=== PATIENT | female | born 1960 | race Two or more races ===

== ENCOUNTER → 2020-10-20 | Outpatient (CLI) | payer BC ==
[2020-10-20 15:35] VITALS: BP 140/88; PULSE 88; RESP 18; TEMP 97.6
--- NOTE | 2020-10-20 15:56 | P.GSHP ---
History of Present Illness H&P Date: 10/20/20 Chief Complaint: abnromal mammogram Abbey is a 59 year old white female seen in consultation for a bilateral mammgram on 08-10-20. This revealed a new elliptical shaped mass in the subcu. The lateral aspect of the right breast at the 11 o'clock position. This measure d [address] place 0.6 x 0.8 cm. This was new and not present on prior mammograms. The patient was recommended to undergo spot compression cone-down views and ultrasound. An ultrasound of the right breast was performed and 120 821. This revealed at the 11 o'clock position is 0.7 x 1 cm thick walled cyst. Ultrasound core biopsy was recommended. The patient at that procedure which was performed on was noted to have a 2.3 x 2 cm prominent was a circumscribed lesion felt to reflect a prominent but benign lymph node. The patient additionally was noted to have on ultrasound a 10 x 5 mm lesion for which biopsy was performed. This biopsy revealed her last mammogram prior to this was an proximally 1-2 years ago. She did not feel any new lumps masses or nodules of concern. However, she had a breast reduction in January of 2018. She reduced down to a 40D. Her breast feel different to her since that time. No nipple discharge of skin changes. She had a bilateral mammogram performed on 1220 320. This revealed a 1.6 x 0.8 cm elliptical shaped mass which was felt to be new in the right breast and the superior-lateral aspect. An ultrasound was performed of this area. The ul trasound was performed on 120 821. Ultrasound revealed a 4.7 x 1 cm thick walled cystic lesion. Ultrasound-guided core biopsy was performed of the cystic lesion and scanning of the mass revealed the mass to be at 2.3 x 2 cm prominent as a circumscribed lesion felt to reflect a prominent be benign lymph node as it was a fatty hilum identified. from the core biopsy was benign. The impression was successful uncomplicated ultrasound-guided core biopsy which was felt to be benign low index of suspicion in the right breast mammogram and ultrasound in 6 months time recommended. No lesions of concern identified in the left breast. Caffeine: 23 cups of coffee per day Nicotine: Negative lion-bromine: frequent Family History: none Hormonal History: menarche: 11 , breast fed: yes, age at first : 21 menopause: 48 BCP: 20 years hormones: none Surgical history: 2 bladder slings Bilateral carpal tunnel Bilateral breast reduction mammoplasties left iguinal hernia repair Medical History: none Social History: smoke: none alcohol: none drugs: none - Constitutional Constitutional: Denies chills, Denies fever - EENT Eyes: denies blurred vision, denies pain Ears: bilateral: tinnitus, deny: decreased hearing Ears, nose, mouth and throat: Denies headache, Denies sore throat - Breasts Breasts: bilateral: as per HPI - Cardiovascular Cardiovascular: Denies chest pain, Denies shortness of breath - Respiratory Respiratory: Denies cough, Denies 7 - Gastrointestinal Gastrointestinal: Denies abdominal pain, Denies diarrhea, Denies nausea, Denies vomiting - Genitourinary (Female) Genitourinary: Denies dysuria, Denies hematuria - Menstruation Menstruation: Reports postmenopausal - Musculoskeletal Musculoskeletal: Denies myalgias - Integumentary Integumentary: Denies pruritus, Denies rash - Neurological Neurological: Denies numbness, Denies weakness - Psychiatric Psychiatric: Reports depression, Denies anxiety - Endocrine Endocrine: Denies fatigue, Denies weight change - Hematologic/Lymphatic Comment: none - Allergic/Immunologic Allergic/Immunologic: Reports as per HPI Medications and Allergies Home Medications Medication Instructions Recorded Confirmed Type buPROPion [Wellbutrin] 100 mg PO TID 10/20/20 10/20/20 History methylPREDNISolone Dose Pack 4 mg PO DIRECTED 10/20/20 10/20/20 History [Medrol Dose Pack] Allergies Allergy/AdvReac Type Severity Reaction Status Date / Time No Known Allergies Allergy Unverified 10/20/20 15:23 Surgical - Exam BMI 31.9 - General well developed, well nourished, no distress - Eyes normal ocular movement - ENT normal pinna, normal nares - Neck no masses, trachea midline - Respiratory normal respiratory effort, clear to auscultation - Cardiovascular Rhythm: regular Heart Sounds: normal: S1, S2 - Abdomen Abdomen: soft - Integumentary normal turgor - Neurologic no disoriented, no combative - Musculoskeletal normal gait - Psychiatric oriented to time, oriented to person, oriented to place, speech is normal, memory intact Breast exam: BRA: 40D inspection: grade 1 ptosis bilateral, well-healed scars from prior surgery Palpation: Right breast: Multiple positional exam fibrocystic changes, no dominant masses or nodules of concern Right axilla: No adenopathy of concern Left breast: Multiple positional exam fibrocystic changes no dominant masses or nodules of concern Left axilla: No adenopathy of concern Results Mammogram and ultrasound results reviewed as well as radiographs reviewed in person with Dr. Ibrahim Assessment and Plan Assessment: Impression: 1. Abnormal right breast mammogram July 2020 and ultrasound from August 2020; no abnormalities noted in the left breast 2. Status post bilateral reduction mammoplasty 3. Status post post-core biopsy lesion in the right breast/benign, question if this was the area seen on mammogram repeat ultrasound of this area reveals to be consistent with benign lymph node 4. Fibrocystic breast changes 5. 2 cups of coffee per day Plan: 1. Repeat right breast mammogram and ultrasound in 6 months with physician exam at that time 2. Patient encouraged to decrease caffeine intake 3. At this time there is nothing further which would warrant interventional biopsy nor additional radiographic evaluation 4. Fibrocystic breast changes CC: DR. Haywood We discussed that decreasing caffeinated beverages and chocolate may decrease fibrocystic breast changes. These changes may benefit fibrocystic breast changes. She will consider this. Encounter 35 minutes, time spent in physical examination, reviewing reports, and counselling.
== END | disposition home or self-care (01) ==
LOC: WWCWWP 14:49
PROVIDERS: ATTEND Surgery
DX: N60.11 Diffuse cystic mastopathy of right breast (principal); N60.12 Diffuse cystic mastopathy of left breast; Z98.890 Other specified postprocedural states

== ENCOUNTER → 2021-03-30 | Outpatient (CLI) | payer BC ==
--- NOTE | 2021-03-30 12:05 | MM ---
Reason for exam: follow-up at short interval from prior study. Last mammogram was performed 8 months ago. History: Patient is postmenopausal. Benign ultrasound-guided core biopsy of the right breast, September 2020. Reductions of both breasts, 2016. Physical Findings: Nurse did not find any significant physical abnormalities on exam. MG 3D Diag Mammo W/Cad RT CC, MLO, and XCCL view(s) were taken of the right breast. Prior study comparison: August 10, 2020, mammogram. September 30, 2017, mammogram. There are scattered fibroglandular densities. There is chronic nodularity in the right breast. Fat necrosis calcifications upper outer quadrant. Additional short interval follow up recommended. These results were verbally communicated with the patient and result sheet given to the patient on 03/30/21. ASSESSMENT: Probably benign, BI-RAD 3 RECOMMENDATION: Follow-up diagnostic mammogram of both breasts in 6 months.
== END | disposition home or self-care (01) ==
LOC: RADMAMWWP 10:44
PROVIDERS: ATTEND Surgery
DX: R92.1 Mammographic calcification found on diagnostic imaging of breast (principal); N64.1 Fat necrosis of breast
CPT/HCPCS: 77061; 77065

== ENCOUNTER → 2021-05-04 | Outpatient (CLI) | payer BC ==
[2021-05-04 16:19] VITALS: BP 119/80; PULSE 79; RESP 12; TEMP 98.2
--- NOTE | 2021-05-04 16:49 | P.PN ---
Subjective Progress Note Date: 05/04/21 Principal diagnosis: BMI 30.4 She had a bilateral mammogram performed on 561134. This revealed a 1.6 x 0.8 cm elliptical shaped mass which was felt to be new in the right breast in the superior-lateral aspect. An ultrasound was performed of [place] [address]. Ultrasound revealed a 4.7 x 1 cm thick walled cystic lesion. Ultrasound-guided core biopsy was performed of the cystic lesion and scanning of the mass revealed the mass to be at 2.3 x 2 cm prominent as a circumscribed lesion felt to reflect a prominent be benign lymph node as it was a fatty hilum identified. from the core biopsy was benign. The impression was successful uncomplicated ultrasound-guided core biopsy which was felt to be benign low index of suspicion in the right breast mammogram and ultrasound in 6 months time recommended. No lesions of concern identified in the left breast. Patient does not feel any lumps masses or nodules of concern in either breast. [place] [address] which was felt to be benign BIRADS 3. Follow-up diagnostic mammogram of both breasts is recommended in 6 months to be back on schedule. Patient has not had COVID, she did get the vaccine. Caffeine: 23 cups of coffee per day Nicotine: Negative lion-bromine: frequent Family History: none Hormonal History: menarche: 11 , breast fed: yes, age at first : 21 menopause: 48 BCP: 20 years hormones: none Surgical history: 2 bladder slings Bilateral carpal tunnel Bilateral breast reduction mammoplasties left iguinal hernia repair Medical History: none Social History: smoke: none alcohol: none drugs: none - Constitutional Constitutional: Denies chills, Denies fever - EENT Eyes: denies blurred vision, denies pain Ears: bilateral: tinnitus, deny: decreased hearing Ears, nose, mouth and throat: Denies headache, Denies sore throat - Breasts Breasts: bilateral: as per HPI - Cardiovascular Cardiovascular: Denies chest pain, Denies shortness of breath - Respiratory Respiratory: Denies cough - Gastrointestinal Gastrointestinal: Denies abdominal pain, Denies diarrhea, Denies nausea, Denies vomiting - Genitourinary (Female) Genitourinary: Denies dysuria, Denies hematuria - Menstruation Menstruation: Reports postmenopausal - Musculoskeletal Musculoskeletal: Denies myalgias - Integumentary Integumentary: Denies pruritus, Denies rash - Neurological Neurological: Denies numbness, Denies weakness - Psychiatric Psychiatric: Reports depression, Denies anxiety - Endocrine Endocrine: Denies fatigue, Denies weight change - Hematologic/Lymphatic Comment: none - Allergic/Immunologic Allergic/Immunologic: Reports as per HPI Objective - Vital Signs Vital signs: Vital Signs Temp 98.2 F 05/04/21 16:13 Pulse 79 05/04/21 16:13 Resp 12 05/04/21 16:13 BP 119/80 05/04/21 16:13 Pulse Ox 96 05/04/21 16:13 Intake & Output 05/03/21 05/04/21 05/04/21 18:59 06:59 18:59 Weight 90.718 kg - Exam BMI 30.4 - Constitutional General appearance: Present: cooperative - EENT Eyes: Present: EOMI ENT: Present: hearing grossly normal - Neck Neck: Present: normal ROM - Respiratory Respiratory: bilateral: CTA - Cardiovascular Rhythm: regular Heart sounds: normal: S1, S2 - Gastrointestinal General gastrointestinal: Present: soft - Integumentary Integumentary: Present: normal turgor - Musculoskeletal Musculoskeletal: Present: gait normal - Psychiatric Psychiatric: Present: A&O x's 3, appropriate affect, intact judgment & insight - Additional findings Additional findings: Breast Exam: BRA: 38DD inspection: Well-healed scars bilateral from prior reduction mammoplasty Palpation: Right breast: Multi-positional exam fibrocystic changes no dominant masses or nodules of concern Right axilla: No adenopathy of concern Left breast: Multiple positional exam fibrocystic changes no dominant masses or nodules of concern Left axilla: No adenopathy of concern Assessment and Plan Assessment: Depression: 1. Bilateral fibrocystic breast changes 2. Scars related to reduction mammoplasty bilateral Plan: 1. Repeat bilateral mammogram in 6 months with a right breast ultrasound 2. Follow up sooner if any questions or concerns CC: Dr. Soumya Haywood
== END ==
LOC: WWCWWP 15:55
PROVIDERS: ATTEND Surgery
DX: N60.11 Diffuse cystic mastopathy of right breast (principal); N60.12 Diffuse cystic mastopathy of left breast; F32.9 Major depressive disorder, single episode, unspecified; Z98.82 Breast implant status

== ENCOUNTER → 2021-10-20 | Outpatient (CLI) | payer BC ==
--- NOTE | 2021-10-20 15:18 | MM ---
Reason for exam: additional evaluation requested from prior study. Last mammogram was performed 7 months ago. History: Patient is postmenopausal. Benign ultrasound-guided core biopsy of the right breast, September 2020. Reductions of both breasts, 2016. Physical Findings: A clinical breast exam by your physician is recommended on an annual basis and results should be correlated with mammographic findings. MG 3D Diag Mammo W/Cad ABBIE Bilateral CC and MLO view(s) were taken. Prior study comparison: March 30, 2021, right breast MG 3d diag mammo w/cad RT. August 10, 2020, mammogram. The breast tissue is heterogeneously dense. This may lower the sensitivity of mammography. Stable benign calcifications. There is chronic nodularity bilaterally. No significant new findings when compared with previous films. These results were verbally communicated with the patient and result sheet given to the patient on 10/20/21. ASSESSMENT: Incomplete: need additional imaging evaluation, BI-RAD 0 RECOMMENDATION: Ultrasound of the right breast.
--- NOTE | 2021-10-20 15:19 | USB ---
Reason for exam: additional evaluation requested from abnormal screening. History: Patient is postmenopausal. Benign ultrasound-guided core biopsy of the right breast, September 2020. Reductions of both breasts, 2016. US Breast RT Right complete breast ultrasound includes all four quadrants, the retroareolar region and axilla. Finding demonstrates a 0.8 x 0.6 x 0.8cm lesion at 11 o'clock, a 1.3 x 0.7 x 1.2cm lesion at 11 o'clock and a 0.7 x 0.7 x 0.7cm lesion at 11 o'clock. These results were verbally communicated with the patient and result sheet given to the patient on 10/20/21. ASSESSMENT: Probably benign, BI-RAD 3 RECOMMENDATION: Ultrasound of the right breast in 6 months.
== END | disposition home or self-care (01) ==
LOC: RADMAMWWP 12:45
PROVIDERS: ATTEND Surgery
DX: R92.8 Other abnormal and inconclusive findings on diagnostic imaging of breast (principal); Z78.0 Asymptomatic menopausal state
CPT/HCPCS: 77062; 77066

== ENCOUNTER → 2022-06-05 | Outpatient (CLI) | payer BC ==
--- NOTE | 2022-06-05 10:52 | USB ---
Reason for Exam: Follow-up at short interval from prior study. Patient History: Menarche at age 10. First Full-Term at age 21. Postmenopausal. 2016, Bilateral Reduction. 09/2020, Benign Ultrasound-Guided Core Biopsy on the right side. Risk Values: Caprice 5 year model risk: 1.7%. NCI Lifetime model risk: 7.1%. Technique: Method: Whole Breast Handheld. Prior Study Comparison: 08/10/2020 Screening Mammogram, Unknown. 03/30/2021 Right Diagnostic Mammogram, [facility]. 10/20/2021 Bilateral Diagnostic Mammogram, [facility]. Findings: The whole breast of the right breast, the axilla of the right breast and the retroareolar of the right breast were scanned. A complete US of all four quadrants of the breast, axilla, and retro-areolar region were reviewed. At the 11:00 position, 5 cm from the nipple, there are 2 adjacent oval benign cysts measuring 1.4 and 1.1 cm. Dense shadowing calcification adjacent measuring 7 mm corresponds well to an oil cyst calcification on mammogram. A 5 x 5 x 5 mm mixed area with adjacent microclip. This seems to correspond to the site of previous biopsy. No other solid or cystic lesion. Overall Assessment: Probably benign, BI-RAD 3 Management: Diagnostic Mammogram of both breasts in 6 months. Diagnostic Breast Ultrasound of the right breast. Mammogram follow-up in 6 months in time for the patient's annual exam. Targeted ultrasound follow-up upper-outer quadrant right breast. Patient should continue monthly self breast exams. Results were given to the patient verbally at the time of exam. Electronically signed and approved by: Kaleigh Milligan M.D. Radiologist
== END | disposition home or self-care (01) ==
LOC: RADUSWWP 10:12
PROVIDERS: ATTEND Surgery
DX: R92.8 Other abnormal and inconclusive findings on diagnostic imaging of breast (principal); Z78.0 Asymptomatic menopausal state

== ENCOUNTER → 2022-06-29 | Outpatient (CLI) | payer BC ==
[2022-06-29 13:24] VITALS: BP 129/53; PULSE 101; RESP 17; TEMP 98.5
--- NOTE | 2022-06-29 13:46 | P.PN ---
Subjective Progress Note Date: 06/29/22 Principal diagnosis: fibrocystic breast disease Abbey is a 61 year old white female seen for breast evaluation. She had a bilateral mammogram performed on 3421. Secondary to the findings and ultrasound of the right breast was recommended. This was performed on the same date. Ultrasound revealed several cystic lesions and a repeat ultrasound in 6 months was recommended. The repeat ultrasound was performed in 633931. Repeat ultrasound revealed 2 adjacent oval benign cyst measuring 1.4-1.1 cm at the 11 o'clock position. Additionally there is believed to be an oral cyst was identified. A 5 x 5 mm mixed area with an adjacent microclip was seen and was felt to correspond to an area which had previously been biopsied and was benign. The patient does not feel any new lumps masses or nodules of concern in either breast. The patient did have a biopsy of her right breast on which revealed fibrosis and dystrophic calcifications with histiocytic infiltration no mammary ducts or malignancy was identified. Caffeine: 2 to 3 cups of coffee per day Nicotine: Negative lion-bromine: frequent Family History: none Hormonal History: menarche: 11 , breast fed: yes, age at first : 21 menopause: 48 BCP: 20 years hormones: none Surgical history: 2 bladder slings Bilateral carpal tunnel Bilateral breast reduction mammoplasties left iguinal hernia repair left thumb surgery Medical History: none Social History: smoke: none alcohol: none drugs: none - Constitutional Constitutional: Denies chills, Denies fever - EENT Eyes: denies blurred vision, denies pain Ears: bilateral: tinnitus, deny: decreased hearing Ears, nose, mouth and throat: Denies headache, Denies sore throat - Breasts Breasts: bilateral: as per HPI - Cardiovascular Cardiovascular: Denies chest pain, Denies shortness of breath - Respiratory Respiratory: Denies cough - Gastrointestinal Gastrointestinal: Denies abdominal pain, Denies diarrhea, Denies nausea, Denies vomiting - Genitourinary (Female) Genitourinary: Denies dysuria, Denies hematuria - Menstruation Menstruation: Reports postmenopausal - Musculoskeletal Musculoskeletal: Denies myalgias - Integumentary Integumentary: Denies pruritus, Denies rash - Neurological Neurological: Denies numbness, Denies weakness - Psychiatric Psychiatric: Reports depression, Denies anxiety - Endocrine Endocrine: Denies fatigue, Denies weight change - Hematologic/Lymphatic Comment: none - Allergic/Immunologic Allergic/Immunologic: Reports as per HPI Objective - Vital Signs Vital signs: Vital Signs Temp 98.5 F 06/29/22 13:19 Pulse 101 H 06/29/22 13:19 Resp 17 06/29/22 13:19 BP 129/53 06/29/22 13:19 Pulse Ox 98 06/29/22 13:19 FiO2 Intake & Output 06/28/22 06/29/22 06/29/22 18:59 06:59 18:59 Weight 97.522 kg - Constitutional General appearance: Present: cooperative - EENT Eyes: Present: edentulous ENT: Present: hearing grossly normal - Neck Neck: Present: normal ROM - Respiratory Respiratory: bilateral: CTA - Cardiovascular Rhythm: regular Heart sounds: normal: S1, S2 - Gastrointestinal General gastrointestinal: Present: soft - Integumentary Integumentary: Present: normal turgor - Musculoskeletal Musculoskeletal: Present: gait normal - Psychiatric Psychiatric: Present: A&O x's 3, appropriate affect, intact judgment & insight - Additional findings Additional findings: Breast Exam: BRA: 40DD Inspection: Well-healed scars bilateral from bilateral reduction mammoplasty Palpation: Right breast: Multiple positional exam fibrocystic changes, no dominant masses or nodules of concern Right axilla: No adenopathy of concern Left breast: Both positional exam fibrocystic changes no dominant masses or nodules of concern Left axilla: No adenopathy of concern Assessment and Plan Assessment: Impression: Bilateral fibrocystic breast changes Plan: Bilateral mammogram and right breast ultrasound in 6 months with physician exam at that time There is concern that the area which is 5 x 5 cm in a mixed area with a microclip is not the area which was originally meant to be biopsied. I will review this with the radiologist and we're concerned we will call the patient sooner. Cc: Dr. Haywood
== END | disposition home or self-care (01) ==
LOC: WWCWWP 13:09
PROVIDERS: ATTEND Surgery
DX: Z53.9 Procedure and treatment not carried out, unspecified reason (principal)

== ENCOUNTER → 2023-11-12 | Outpatient (CLI) | payer BC ==
--- NOTE | 2023-11-12 19:50 | BD ---
EXAMINATION TYPE: Axial Bone Density DATE OF EXAM: 11/12/2023 CLINICAL HISTORY: 62 years old Female. ICD-10 CODE: M85.88 OTH DISRD OF BONE DENSITY AND STRUCTURE, OT Height: 65.5 in Weight: 228 lbs EXAM MEASUREMENTS: Bone mineral densitometry was performed using the [employer] System. Bone mineral density as measured about the Lumbar spine is: ----- L1-L4(G/cm2): 1.338 T Score Values are as follows: ----- L1: 0.1 ----- L2: 2.2 ----- L3: 1.9 ----- L4: 1.0 ----- L1-L4: 1.3 Z Score Values are as follows: ----- L1: 0.6 ----- L2: 2.6 ----- L3: 2.3 ----- L4: 1.4 ----- L1-L4: 1.7 Bone mineral density baseline Bone mineral density about the R hip (g/cm2): 0.948 Bone mineral density about the L hip (g/cm2): 0.999 T Score values are as follows: -----R Neck: -1.0 -----L Neck: -1.1 -----R Total: -0.5 -----L Total: -0.1 Z Score values are as follows: -----R Neck: -0.3 -----L Neck: -0.4 -----R Total: -0.1 -----L Total: 0.3 Bone mineral density baseline FRAX%s: The graph provided illustrates a 7.3% chance for a major osteoporotic fx and a 0.5% chance fo r the hips probability for fx in 10 years time. IMPRESSION: Normal (Values between +1 and -1 indicate normal bone mass). Consider repeating this study in 5 year s or sooner if there is some new clinical indication. NOTE: T-SCORE=SD OF THE YOUNG ADULT MEAN.
== END | disposition home or self-care (01) ==
LOC: RADBDWWP 08:44
PROVIDERS: ATTEND Internal Medicine
DX: M85.852 Other specified disorders of bone density and structure, left thigh (principal)
CPT/HCPCS: 77080

== ENCOUNTER → 2023-12-20 | Outpatient (CLI) | payer MEDICARE ==
--- NOTE | 2023-12-20 08:26 | CT ---
EXAMINATION TYPE: CT heart w calcium score DATE OF EXAM: 12/20/2023 COMPARISON: HISTORY: Screening for cardiovascular disorder. 213.9 CT DLP: 130.10 mGycm Automated exposure control for dose reduction was used. CT CALCIUM SCORING Coronary calcium is a marker for plaque (fatty deposits) in a blood vessel or atherosclerosis (harden ing of the arteries). The presence and amount of calcium detected in a coronary artery by the CT sca n, indicates the presence and amount of atherosclerotic plaque. These calcium deposits appear years before the development of heart disease symptoms such as chest pain and shortness of breath. A calcium score is computed for each of the coronary arteries based upon the volume and density of th e calcium deposits. This can be referred to as your calcified plaque burden. It does not correspond directly to the percentage of narrowing in the artery but does correlate with the severity of the un derlying coronary atherosclerosis. PROCEDURE TECHNIQUE - Prospective Gating was used. Slice thickness: 3mm. Density threshold (HU): 130, Pixel threshold: 3, Algorithm: discrete. RESULTS Region: LM Calcium Score ([place]): 0 Volume (mm3): 0 Mass (g): 0 Region: RCA Calcium Score ([place]): 0 Volume (mm3): 0 Mass (g): 0 Region: LAD Calcium Score ([place]): 0 Volume (mm3): 0 Mass (g): 0 Region: CX Calcium Score ([place]): 0 Volume (mm3): 0 Mass (g): 0 Region: PDA Calcium Score ([place]): 0 Volume (mm3): 0 Mass (g): 0 Total: Calcium Score ([place]): 0 Volume (mm3): 0 Mass (g): 0 TOTAL CALCIUM SCORE: 0 Miscellaneous: Small hiatal hernia. Heart size is normal. Borderline aortic aneurysm measuring 4 cm. IMPRESSION: Calcium Score: 0 Implication: No identifiable plaque. Risk of Coronary Artery Disease: Very low risk of coronary artery disease, generally estimated at les s than 5%. Borderline thoracic ascending aortic aneurysm measuring 4 cm. CALCIUM SCORE IMPLICATION RISK OF C ORONARY ARTERY DISEASE 0 No identifiable plaque Very low, generally less than 5% 1-10 Minimal identifiable plaque Very unlikely, less than 10% 11-100 Definite, at least mild atherosclerotic plaque Mild or m inimal coronary narrowings likely 101-400 Definite, at least moderate atherosclerotic plaque Mild coronary ar enrique disease highly likely, significant narrowing possible 401 or Higher Extensive atherosclerotic plaque High lik elihood of at least one significant coronary narrowing
== END | disposition home or self-care (01) ==
LOC: RADCTMAIN 06:10
PROVIDERS: ATTEND Internal Medicine
DX: Z13.6 Encounter for screening for cardiovascular disorders (principal); E78.2 Mixed hyperlipidemia; I71.21 Aneurysm of the ascending aorta, without rupture
CPT/HCPCS: 75571

== ENCOUNTER → 2023-12-23 | Outpatient (CLI) | payer BC, MEDICARE ==
--- NOTE | 2023-12-24 18:51 | MM ---
Reason for Exam: Screening (asymptomatic). Last screening mammogram was performed 12 month(s) ago. Patient History: Menarche at age 10. First Full-Term at age 21. Postmenopausal. Patient has history of breast feeding. 2016, Bilateral Reduction. 09/2020, Benign Ultrasound-Guided Core Biopsy on the right side. Risk Values: Caprice 5 year model risk: 1.8%. NCI Lifetime model risk: 6.6%. Prior Study Comparison: 03/30/2021 Right Diagnostic Mammogram, [facility]. 10/20/2021 Bilateral Diagnostic Mammogram, [facility]. 12/21/2022 Bilateral MG 3D diag mammo w/cad [facility], [facility]. Tissue Density: There are scattered areas of fibroglandular density. Findings: Analyzed By CAD. Chronic nodularity in both breasts. Unchanged areas of bilateral asymmetric densities. There is no suspicious group of microcalcifications or new suspicious mass in either breast. Overall Assessment: Benign, BI-RAD 2 Management: Screening Mammogram of both breasts in 1 year. . Patient should continue monthly self-breast exams. A clinical breast exam by your physician is recommended on an annual basis. This exam should not preclude additional follow-up of suspicious palpable abnormalities. Note on Caprice scores and lifetime risk: 1. A Caprice score greater than 3% is considered moderate risk. If this is the case, consider specialist referral to assess eligibility for a risk reducing agent. 2. If overall lifetime risk for the development of breast cancer is 20% or higher, the patient may qualify for future screening with alternating mammogram and breast MRI. Electronically signed and approved by: Kaleigh Milligan M.D. Radiologist
== END | disposition home or self-care (01) ==
LOC: RADMAMWWP 08:50
PROVIDERS: ATTEND Internal Medicine
DX: Z12.31 Encounter for screening mammogram for malignant neoplasm of breast (principal); Z78.0 Asymptomatic menopausal state
CPT/HCPCS: 77063; 77067

== ENCOUNTER → 2024-12-23 | Outpatient (CLI) | payer MEDICARE ==
--- NOTE | 2024-12-23 08:38 | MM ---
Reason for Exam: Clinical finding. Last screening mammogram was performed 12 month(s) ago. Patient History: Menarche at age 10. First Full-Term at age 21. Left ovary removed at age 63. Right ovary removed at age 63. Hysterectomy at age 63. Postmenopausal. Patient has history of breast feeding. 2016, Bilateral Reduction. 09/2020, Benign Ultrasound-Guided Core Biopsy on the right side. Risk Values: Caprice 5 year model risk: 1.8%. NCI Lifetime model risk: 6.4%. Tissue Density: There are scattered areas of fibroglandular density. Findings: Analyzed By CAD. There is no suspicious group of microcalcifications or new suspicious mass. Benign-appearing calcifications bilaterally. No new suspicious masses, calcifications or distortions. Stable axillary lymph nodes bilaterally. Overall Assessment: Benign, BI-RAD 2 Management: Screening Mammogram of both breasts in 1 year. Results were given to the patient verbally at the time of exam. Patient should continue monthly self-breast exams. A clinical breast exam by your physician is recommended on an annual basis. This exam should not preclude additional follow-up of suspicious palpable abnormalities. Note on Caprice scores and lifetime risk: 1. A Caprice score greater than 3% is considered moderate risk. If this is the case, consider specialist referral to assess eligibility for a risk reducing agent. 2. If overall lifetime risk for the development of breast cancer is 20% or higher, the patient may qualify for future screening with alternating mammogram and breast MRI. [facility], , 12/23/2024 8:35 AM. Electronically signed and approved by: Evan Nails DO
== END | disposition home or self-care (01) ==
LOC: RADMAMWWP 08:12
PROVIDERS: ATTEND Internal Medicine
DX: R92.323 Mammographic fibroglandular density, bilateral breasts (principal); R92.343 Mammographic extreme density, bilateral breasts; Z78.0 Asymptomatic menopausal state
CPT/HCPCS: 77062; 77066